=== PATIENT | female | born 1970 | race Caucasian/White ===

== ENCOUNTER 2024-02-08 14:25 | Emergency (ER) | payer OTHER ==
[2024-02-08 14:53] VITALS: BP 114/70; PULSE 81; RESP 18; TEMP 98.1; BMI 24.2
[2024-02-08] MEDS ORDERED: LIDOCAINE HCL/PF 1% SDV 5ML VIAL ONE (17:47)
[2024-02-08] MEDS: LIDOCAINE HCL 1%, 10 MG/ML (50 mL VIAL) SQ ONE (17:54)
== END 2024-02-08 17:56 | disposition home or self-care (01) ==
LOC: JERFT 14:25
PROC: 0HQ0XZZ Repair Scalp Skin, External Approach (ICD-10-PCS; principal; 2024-02-08)
DX: S01.01XA Laceration without foreign body of scalp, initial encounter (principal); W10.9XXA Fall (on) (from) unspecified stairs and steps, initial encounter
CPT/HCPCS: 70450-TC; 99284-25

== ENCOUNTER 2024-02-19 15:58 | Emergency (ER) | payer OTHER ==
[2024-02-19 16:06] VITALS: BP 128/72; PULSE 87; RESP 18; TEMP 98; BMI 28.4
== END 2024-02-19 16:51 | disposition home or self-care (01) ==
LOC: JERFT 15:58
DX: Z48.02 Encounter for removal of sutures (principal)
CPT/HCPCS: 99281-25